=== PATIENT | female | born 1990 | race Caucasian/White ===

== ENCOUNTER 2019-02-14 13:33 | Emergency (ER) | payer OTHER ==
[2019-02-14 13:44] VITALS: BMI 24.3
--- NOTE | 2019-02-14 13:44 | PDOC ---
Rapid Medical Evaluation Chief Complaint: Vomiting/Diarrhea Time Seen by Provider: 02/14/19 13:41 Medical Evaluation: Allergies Allergy/AdvReac Type Severity Reaction Status Date / Time aripiprazole [From Abilify] Allergy Verified 06/28/14 17:49 02/14/19 13:41 I have performed a brief in-person evaluation of this patient. The patient presents with a chief complaint of: h/o IBS sent in by GI Dr. Templeton for diarrhea with N/V x 1 wk. unable to keep food down. fam h/o GI colon CA by mother at 30yo. Denies fever, chills, weakness. report report intermittent abd pains but no abd pain now Pertinent physical exam findings: A&O x 3 in NAD I have ordered the following: cbc,cmp, lipase The patient will proceed to the ED for further evaluation Discharge Disposition - Diagnosis Diarrhea Qualifiers: Diarrhea type: functional diarrhea Qualified Code(s): K59.1 - Functional diarrhea - Discharge Dispostion Condition at time of disposition: Stable - Referrals - Patient Instructions - Post Discharge Activity
[2019-02-14 14:08] LABS: BASO % 0.6 % (0-2.0); HEMATOCRIT 36.4 % (32.4-45.2); HEMOGLOBIN 11.9 GM/dL (10.7-15.3); LYMPH % 19.3 % (8-40); MCH 28.6 pg (25.7-33.7); MCHC 32.7 g/dl (32.0-36.0); MEAN CELL VOLUME 87.5 fl (80-96); MEAN PLT VOLUME 9.2 fl (7.5-11.1); MONO % 10.2 % (3.8-10.2); NEUT % 68.9 % (42.8-82.8); PLATELET COUNT 197 K/MM3 (134-434); RBC 4.16 M/mm3 (3.60-5.2); WHITE BLOOD COUNT 4.6 K/mm3 (4.0-10.0)
[2019-02-14] MEDS ORDERED: SODIUM CHLORIDE 1,000 ML IV ONE (14:25)
[2019-02-14] MEDS ORDERED: ONDANSETRON 4 MG/2 ML VIAL IVPB ONE (14:25)
[2019-02-14] MEDS ORDERED: ONDANSETRON 4 MG/2 ML VIAL ONE (14:32)
--- NOTE | 2019-02-14 14:40 | PDOC ---
History of Present Illness - General Chief Complaint: Vomiting/Diarrhea Stated Complaint: SENT BY PCP Time Seen by Provider: 02/14/19 13:41 History Source: Patient Exam Limitations: No Limitations - History of Present Illness Travel History: No Initial Comments: 02/14/19 14:26 28y F hx of IBS presents with 1 week of intermittent abd cramping/constipation/ non bloody diarrhea associated with a couple of episodes of vomiting. She called her GI doctor who referred her to the ER for evaluation. Pt notes intermittent abd pain but non currently. Patient states she took some Mag Citrate and vomited it up yesterday. Pt denies any fever/chills, headache, neck pain, back pain, cp, sob. Pts LMP was 2 weeks ago. Pt notes pts somehwat similar to her prior IBS, she is also inthe midst of midterms currently. The vomiting is new for her as she never had that with ibs in the past. pt denies any recent travel or known sick contacts. no new medications. Patient notes that the stool is is watery and yellow iwthout blood/melena. PMD: Dr. Doran GI: Dr. Jamison Past History - Past Medical History Allergies/Adverse Reactions: Allergies Allergy/AdvReac Type Severity Reaction Status Date / Time aripiprazole [From [facility]] Allergy Verified 06/28/14 17:49 Home Medications: Ambulatory Orders Belladonna Alkaloids/Phenobarb [ -] 1 tab PO TID #21 tablet 06/28/14 Fluoxetine HCl [Prozac] 80 mg PO DAILY 06/28/14 Anemia: No Asthma: No Cancer: No Cardiac Disorders: No CVA: No COPD: No CHF: No Dementia: No Diabetes: No GI Disorders: No Disorders: No HTN: No (ORTHOSTATIC BLOOD PRESSURE) Hypercholesterolemia: No Liver Disease: No Psychiatric Problems: Yes (EATING DISORDER,SELF MUTILATION-CUTTING) Seizures: No Thyroid Disease: No - Surgical History Abdominal Surgery: No Appendectomy: No Cardiac Surgery: No Cholecystectomy: No Lung Surgery: No Neurologic Surgery: No Orthopedic Surgery: No - Immunization History Immunization Up to Date: No - Psycho Social/Smoking Cessation Hx Smoking Status: No Smoking History: Never smoked Have you smoked in the past 12 months: No Number of Cigarettes Smoked Daily: 0 Information on smoking cessation initiated: No Hx Alcohol Use: No Drug/Substance Use Hx: No Substance Use Type: None Review of Systems - Review of Systems Able to Perform ROS?: Yes Comments:: 02/14/19 14:29 Constitutional - no reported Fever, Chills, HEENT: no reported vision changes, sore throat Respiratory: no reported cough, sob, hemoptysis Cardiac: no reported chest pain, palpitations, light headedness, leg swelling Abd/GI: +abd pain, nausea, vomiting, dirreha no reported blood per rectum, melena : no reported dysuria, frequency, discharge Musculskelatal - no reported back pain, joint swelling skin - no reported bruising, erythema, rash neurological: no reported headache, numbness, focal weakness, tingling, ataxia, hematologic: no reported easy bruising, easy bleeding *Physical Exam - Vital Signs Last Vital Signs Temp Pulse Resp BP Pulse Ox 98.3 F 83 18 126/83 99 02/14/19 13:42 02/14/19 13:42 02/14/19 13:42 02/14/19 13:42 02/14/19 13:42 - Physical Exam Comments: 02/14/19 14:29 GENERAL: The patient is awake, alert, and fully oriented, Nontoxic - in no acute distress. HEAD: Normocephalic, atraumatic. EYES: extraocular movements intact, sclera anicteric, conjunctiva clear. ENT: Normal voice, Moist mucous membranes. NECK: Normal range of motion, supple LUNGS: Breath sounds equal, clear to auscultation bilaterally. No wheezes, no rhonchi, no rales. HEART: Regular rate and rhythm, normal S1 and S2 without murmur, rub or gallop. ABDOMEN: Soft, nontender, No guarding, no rebound. No CVA tenderness EXTREMITIES: Normal range of motion, no edema. NEUROLOGICAL: No facial assymetry, Normal speech, PSYCH: Normal mood, normal affect. SKIN: Warm, Dry, normal turgor, ED Treatment Course - LABORATORY CBC & Chemistry Diagram: 02/14/19 14:00 02/14/19 14:00 - ADDITIONAL ORDERS Additional order review: 02/14/19 14:00 RBC 4.16 MCV 87.5 MCHC 32.7 RDW 13.0 MPV 9.2 Neutrophils % 68.9 D Lymphocytes % 19.3 D Monocytes % 10.2 Eosinophils % 1.0 D Basophils % 0.6 Medical Decision Making - Medical Decision Making 02/14/19 14:40 Differential for patient's symptoms includes possible IBS, gastroenteritis, no focal tenderness to suggest acute peritoneal infection such as appendicitis diverticulitis. Will obtain basic lab works we will treat patient's dramatically with fluids, Jenniferfran will reassess 02/14/19 16:18 Patient's labs are reviewed they are unremarkable 02/14/19 16:50 pt feeling improved abd improved, still with intermittent cramping but abd is soft nicanor bartlett have pt fu with pmd return precautions were discussed I discussed the physical exam findings, ancillary test results and final diagnoses with the patient. I answered all of the patient's questions. The patient was satisfied with the care received and felt comfortable with the discharge plan and treatment plan. The patient will call their primary care physician within 24 hours to arrange follow-up and will return to the Emergency Department with any new, persistent or worsening symptoms. Discharge - Discharge Information Problems reviewed: Yes Clinical Impression/Diagnosis: Diarrhea Qualifiers: Diarrhea type: functional diarrhea Qualified Code(s): K59.1 - Functional diarrhea Condition: Improved Disposition: HOME - Admission No - Follow up/Referral Referrals: Lucinda Garnett MD [Primary Care Provider] - Wally Garcia DO [Staff Physician] - - Patient Discharge Instructions Patient Printed Discharge Instructions: DI for Diarrhea and Traveler's Diarrhea -- Adult Additional Instructions: Return to the emergency department immediately with ANY new, persistent or worsening symptoms including worsening abdominal pain, fevers, inability to tolerate oral intake, chest pain, shortness of breath or any other concerns. Stay well hydrated. You MUST call and follow up with your doctor tomorrow. Your emergency department visit is not complete without a followup with your doctor for reevaluation. Please make sure your doctor reviews the results of your emergency evaluation. Print Language: ITALIAN - Post Discharge Activity
[2019-02-14 14:42] LABS: ALBUMIN 3.6 g/dl (3.4-5.0); BILIRUBIN,TOTAL 0.4 mg/dL (0.2-1); BLOOD UREA NITROGEN 5.4 mg/dL (7-18); CALCIUM 9.2 mg/dL (8.5-10.1); CREATININE 0.9 mg/dL (0.55-1.3); POTASSIUM 4.3 mmol/L (3.5-5.1); TOT PROT 6.8 g/dl (6.4-8.2)
[2019-02-14 17:01] VITALS: BP 114/80; PULSE 88; TEMP 99
[2019-02-14 17:26] LABS: EPI CELLS 0.8 /HPF (0-5/HPF); HYALINE CASTS 1 /lpf (0-8); PH,URINE 6.5 (5.0-8.0); URINE APPEARANCE CLEAR; URINE BILIRUBIN NEGATIVE (NEGATIVE); URINE COLOR YELLOW; URINE GLUCOSE (UA) NEGATIVE (NEGATIVE); URINE KETONE NEGATIVE (NEGATIVE); URINE LEUK ESTERASE NEGATIVE (NEGATIVE); URINE NITRITE NEGATIVE (NEGATIVE); URINE PROTEIN NEGATIVE (NEGATIVE); URINE RBC 3 /hpf (0-4); URINE UROBILINOGEN 0.2 mg/dL (0.2-1.0); URINE WBC 0 /hpf (0-5)
== END 2019-02-14 18:00 | disposition home or self-care (01) ==
LOC: JER 13:33
PROC: 3E033GC Introduction of Other Therapeutic Substance into Peripheral Vein, Percutaneous Approach (ICD-10-PCS; principal; 2019-02-14)
DX: K59.1 Functional diarrhea (principal); F50.9 Eating disorder, unspecified; Z68.24 Body mass index [BMI] 24.0-24.9, adult; Z91.5 Personal history of self-harm; Z88.8 Allergy status to other drugs, medicaments and biological substances; Z87.19 Personal history of other diseases of the digestive system
CPT/HCPCS: 36415; 80053; 81003; 83690; 84703; 85025; 99283-25; J7030

== ENCOUNTER 2020-05-22 04:56 | Day surgery (SDC) | payer BC ==
[2020-05-17 14:44] VITALS: BMI 25.2
[2020-05-22 10:30] VITALS: TEMP 98.6
[2020-05-22 11:58] VITALS: BP 112/65; PULSE 59
== END 2020-05-22 11:57 | disposition home or self-care (01) ==
LOC: JASU-ENDO 04:56
PROVIDERS: ATTEND Internal Medicine Gastroenterology
PROC: 0DJD8ZZ Inspection of Lower Intestinal Tract, Via Natural or Artificial Opening Endoscopic (ICD-10-PCS; principal; 2020-05-22 09:30)
DX: Z12.11 Encounter for screening for malignant neoplasm of colon (principal); Z80.0 Family history of malignant neoplasm of digestive organs; Q43.8 Other specified congenital malformations of intestine; K64.8 Other hemorrhoids; K59.89 Other specified functional intestinal disorders; Z88.8 Allergy status to other drugs, medicaments and biological substances
CPT/HCPCS: 81025